=== PATIENT | female | born 1955 | race Caucasian/White ===

== ENCOUNTER → 2018-04-08 | Outpatient (CLI) | payer MEDICAID ==
--- NOTE | 2018-04-08 11:41 | ECHOF ---
Referral Reason:R07.02 Chest Pain, E11.9 type 2 diabetes MEASUREMENTS -------- HEIGHT: 167.6 cm WEIGHT: 81.6 kg BP: IVSd: 1.1 cm (0.6 - 1.1) LVIDd: 5.0 cm (3.9 - 5.3) LVPWd: 1.2 cm (0.6 - 1.1) IVSs: 2.2 cm LVIDs: 1.5 cm LVPWs: 1.7 cm Ao Diam: 3.5 cm (2.0 - 3.7) AV Cusp: 2.4 cm (1.5 - 2.6) LA Diam: 2.9 cm (2.7 - 3.8) MV EXCURSION: 9.024 mm (> 18.000) MV EF SLOPE: 63 mm/s (70 - 150) EPSS: 0.3 cm MV E Jimmy: 0.68 m/s MV DecT: 231 ms MV A Jimmy: 0.93 m/s MV E/A Ratio: 0.74 RAP: 5.00 mmHg RVSP: 26.42 mmHg FINDINGS -------- Sinus rhythm. This was a technically good study. The left ventricular size is normal. There is mild concentric left ventricular hypertrophy. Overa ll left ventricular systolic function is normal with, an EF between 55 - 60 %. The right ventricle is normal in size and function. The left atrium is normal in size. The right atrium is normal in size. The aortic valve is trileaflet, and appears structurally normal. No aortic stenosis or regurgitation. There is trace mitral regurgitation. Trace tricuspid regurgitation present. The right ventricular systolic pressure, as measured by Dopp ler, is 26.42mmHg. Pulmonic valve appears structurally normal. The aortic root size is normal. The pericardium is normal. CONCLUSIONS -------- 1. Sinus rhythm. 2. This was a technically good study. 3. The left ventricular size is normal. 4. There is mild concentric left ventricular hypertrophy. 5. Overall left ventricular systolic function is normal with, an EF between 55 - 60 %. 6. The right ventricle is normal in size and function. 7. The left atrium is normal in size. 8. The right atrium is normal in size. 9. The aortic valve is trileaflet, and appears structurally normal. No aortic stenosis or regurgitati on. 10. There is trace mitral regurgitation. 11. Trace tricuspid regurgitation present. 12. The right ventricular systolic pressure, as measured by Doppler, is 26.42mmHg. 13. Pulmonic valve appears structurally normal. 14. The aortic root size is normal. 15. The pericardium is normal. FINNISH RUBBER: Swati Mcneal RDCS
--- NOTE | 2018-04-08 11:44 | NM ---
EXAMINATION TYPE: NM stress cardiolite complete DATE OF EXAM: 04/08/2018 COMPARISON: NONE HISTORY: Chest pain, diabetes, hypertension, hyperlipidemia and family history of coronary artery dis ease. TECHNIQUE: After the intravenous administration of 10.9 mCi Tc 99m Sestamibi - Rest images obtained 55 minutes post injection. The patient exercised using a KELLY protocol and 1 minute prior to peak exercise was injected with 28.2 mCi Tc 99m Sestamibi - Stress images obtained 10 minutes post injecti on. FINDINGS: Targeted heart rate was achieved during performance of the study. Review of stress and rest SPECT elvin ges demonstrates no distinct perfusion abnormality. Single segmental defect within the ventricular ap ex on the rest images only and is artifactual or may be retail field representative of physiologic apical thinning . Gated analysis shows normal wall motion with an estimated left ventricular ejection fraction of 64 % at stress. TID is calculated within normal limits at 0.98. IMPRESSION: No scintigraphic evidence for reversible ischemia
--- NOTE | 2018-04-08 11:51 | EST ---
EXERCISE STRESS DATE OF SERVICE: 04/08/2018 AGE: 62 SEX: Female HT: 5'6" WT: 180 pounds PROTOCOL: Cardiolite Jules STAGE: II DURATION OF EXERCISE: 5 minutes HEART RATE REST: 65 BLOOD PRESSURE REST: 144/83 MAXIMUM HEART RATE ACHIEVED: 141 MAXIMUM BLOOD PRESSURE: 218/82 85% MPHR: 133 100% MPHR: 156 METS: 7.0 INDICATIONS: Chest pain. CLINICAL INFORMATION: Baseline EKG revealed normal sinus rhythm without significant ST-T changes. There was poor R-wave progression over precordial leads and this could be related to lead placement. Patient walked on a standard Jules protocol for 5 minutes, achieved a maximal heart rate of 141 beats per minute, which is more than 85% of predicted maximal. Resting heart rate was 65 beats per minute. Resting blood pressure was 144/83 and peak blood pressure was 218/82. The patient did not have any chest pain. She developed shortness of breath and fatigue. There was no significant arrhythmia noted. By EKG criteria, this is a negative stress test with limited exercise capacity. The patient had hypertensive response to exercise. The nuclear scan results, which are more pertinent, will be reported by the radiologist. MMODL / IJN: [id number] /
== END | disposition home or self-care (01) ==
LOC: RADNMMAIN 08:38
PROVIDERS: ATTEND Internal Medicine Interventional Cardiology
DX: I51.7 Cardiomegaly (principal); R07.2 Precordial pain; E11.9 Type 2 diabetes mellitus without complications
CPT/HCPCS: 93017; 93306; 78452; A9500

== ENCOUNTER → 2018-10-30 | Outpatient (CLI) | payer MEDICAID ==
--- NOTE | 2018-11-02 12:47 | MM ---
Reason for exam: screening (asymptomatic). Last mammogram was performed 2 years and 2 months ago. History: Patient is postmenopausal. Took hormonal contraceptives for 5 years beginning at age 21. MG 3D Screening Mammo W/Cad Bilateral CC and MLO view(s) were taken. Prior study comparison: August 16, 2016, bilateral MG 3d screening mammo w/cad. August 06, 2011, bilateral digital screening mammo w/CAD. The breast tissue is heterogeneously dense. This may lower the sensitivity of mammography. No discrete abnormality. No significant changes when compared with prior studies. ASSESSMENT: Negative, BI-RAD 1 RECOMMENDATION: Routine screening mammogram of both breasts in 1 year.
== END ==
LOC: RADMAMWWP 14:58
PROVIDERS: ATTEND Family Medicine
DX: Z12.31 Encounter for screening mammogram for malignant neoplasm of breast (principal)
CPT/HCPCS: 77063; 77067

== ENCOUNTER 2019-03-01 20:31 | Emergency (ER) | payer MEDICAID ==
--- NOTE | 2019-03-01 21:33 | XR ---
EXAMINATION TYPE: XR shoulder complete RT DATE OF EXAM: 03/01/2019 COMPARISON: NONE HISTORY: Pain TECHNIQUE: Shoulder examined in 3 views FINDINGS: The humeral head articulates with the glenoid. The acromio-clavicular junction is normal. No acute fractures or dislocations are evident. A follow up study can be performed 7-10 days from acute trauma for continued pain. IMPRESSION: 1. Normal Shoulder
--- NOTE | 2019-03-01 21:34 | XR ---
EXAMINATION TYPE: XR humerus RT DATE OF EXAM: 03/01/2019 COMPARISON: None HISTORY: Fall, pain TECHNIQUE: 2 view right humerus FINDINGS: Humeral head articulates with the glenoid. Elbow joint space appears preserved. No acute fr actures are evident. Soft tissues are unremarkable. IMPRESSION: 1. Normal 2 view right humerus
[2019-03-01 21:37] VITALS: RESP 18
--- NOTE | 2019-03-01 21:53 | ED ---
General Adult HPI - General Source: patient, RN notes reviewed, old records reviewed Mode of arrival: ambulatory Limitations: no limitations <Christoph Arriaza - Last Filed: 03/01/19 22:08> <Fernanda Sloan - Last Filed: 03/02/19 07:43> - General Chief complaint: Fall Stated complaint: Fell/shoulder pain Time Seen by Provider: 03/01/19 20:41 - History of Present Illness Initial comments: 63-year-old female patient presents to ED with right shoulder injury. Patient reports that she walked on her back and slipped falling with her weight on her right shoulder. Patient port suggestive pain in her right shoulder as well as her proximal right humerus. Patient denies any trauma to head or neck. Patient denies any other injuries. Patient denies any use of blood thinners. Systemic: Pt denies fatigue,fever/chills, rash. Pt denies weakness, night sweats, weight loss. Neuro: Pt denies headache, visual disturbances, syncope or pre-syncope. HEENT: Pt denies ocular discharge or irritation, otalgia, rhinorrhea, pharyngitis or notable lymphadenopathy. Cardiopulmonary: Pt denies chest pain, SOB, heart palpitations, dyspnea on exertion. Abdominal/GI: Pt denies abdominal pain, n/v/d. : Pt denies dysuria, burning w/ urination, frequency/urgency. Denies new onset urinary or bowel incontinence. MSK: Pt denies loss of strength or function in extremities. Neuro: Pt denies new onset weakness, paresthesias. (Christoph Arriaza) - Related Data Allergies Allergy/AdvReac Type Severity Reaction Status Date / Time No Known Allergies Allergy Verified 03/01/19 20:39 Review of Systems ROS Other: All systems not noted in ROS Statement are negative. <Christoph Arriaza - Last Filed: 03/01/19 22:08> ROS Other: All systems not noted in ROS Statement are negative. <Fernanda Sloan - Last Filed: 03/02/19 07:43> ROS Statement: Those systems with pertinent positive or pertinent negative responses have been documented in the HPI. Past Medical History Past Medical History: Diabetes Mellitus, GERD/Reflux, Hyperlipidemia, Hypertension, Thyroid Disorder History of Any Multi-Drug Resistant Organisms: None Reported Past Surgical History: Tubal Ligation Past Psychological History: No Psychological Hx Reported Smoking Status: Never smoker Past Alcohol Use History: None Reported Past Drug Use History: None Reported <Christoph Arriaza - Last Filed: 03/01/19 22:08> General Exam Limitations: no limitations <Christoph Arriaza - Last Filed: 03/01/19 22:08> - General Exam Comments Initial Comments: Constitutional: NAD, AOX3, Pt has pleasant affect. HEENT: NC/AT, trachea midline, neck supple, no lymphadenopathy. Posterior pharynx non erythematous, without exudates. External ears appear normal, without discharge. Mucous membranes moist. Eyes PERRLA, EOM intact. There is no scleral icterus. No pallor noted. Cardiopulmonary: RRR, no murmurs, rubs or gallops, no JVD noted. Lungs CTAB in anterior and posterior gambino. No peripheral edema. Abdominal exam: Abdomen soft and non-distended. Abdomen non-tender to palpation in all 4 quadrants. Bowel sounds active in LLQ. No hepatosplenomegaly. No ecchymosis Neuro: CN II-XII grossly intact. No nuchal rigidity. MSK: Proximal humerus mild tenderness to palpation. No ecchymoses. No significant personal patient shoulder. Range of motion slightly limited secondary to pain. Electric Refrigerator Servicer strength intact. Neurovascularly intact. No other areas of tenderness. No posterior calf tenderness bilaterally, homans sign negative bilaterally. Posterior tibialis and radial pulse +2 bilaterally. Sensation intact in upper and lower extremities. Full active ROM in lower extremities, 5/5 stregnth. (Christoph Arriaza) Course Vital Signs 03/01/19 03/01/19 03/01/19 20:36 21:32 22:17 Temperature 98.3 F 98.1 F 97.9 F Pulse Rate 70 61 54 L Respiratory 20 18 18 Rate Blood Pressure 147/95 130/66 124/50 O2 Sat by Pulse 98 96 97 Oximetry Medical Decision Making <Christoph Arriaza - Last Filed: 03/01/19 22:08> <Fenranda Sloan - Last Filed: 03/02/19 07:43> - Medical Decision Making 63-year-old female patient presents to ED with right shoulder injury. Patient reports that she walked on her back and slipped falling with her weight on her right shoulder. Patient port suggestive pain in her right shoulder as well as her proximal right humerus. Patient denies any trauma to head or neck. Patient denies any other injuries. Patient denies any use of blood thinners. Pt VSS, afebrile. Physical exam displayed: Proximal humerus mild tenderness to palpation. No ecchymoses. No significant personal patient shoulder. Range of motion slightly limited secondary to pain. Electric Refrigerator Servicer strength intact. Neurovascularly intact. No other areas of tenderness. Plain film of shoulder and humerus and display acute pathology. Patient likely has mild shoulder sprain. Patient will be discharged with use Tylenol and Motrin as needed for pain. Patient to follow-up with primary care provider as well as orthopedic consult symptoms persist. Case discussed with Dr. Sloan. (Christoph Arriaza) I was available for consultation in the emergency department. The history and physical exam were done by the midlevel provider. I was consulted for this patient's care. I reviewed the case with the midlevel provider and based on their presentation of the patient, I agree with the assessment, medical decision making and plan of care as documented. Chart was dictated using [employer] dictation software. Attempts were made to correct any dictation errors however some typographical errors may persist. (Fernanda Morrison) Disposition Is patient prescribed a controlled substance at d/c from ED?: No <Christoph Arriaza - Last Filed: 03/01/19 22:08> <Fernanda Sloan - Last Filed: 03/02/19 07:43> Clinical Impression: Shoulder sprain Disposition: HOME SELF-CARE Condition: Stable Instructions (If sedation given, give patient instructions): Shoulder Sprain (ED) Additional Instructions: Patient to adhere to previously discussed treatment plan and will take medication(s) as directed. Patient to follow up with PCP in 1-2 days. Patient to return to ED if symptoms do not improve. Follow-up with primary care provider in 1-2 days. Follow up with orthopedic consult if symptoms persist. Use tylenol and Motrin for pain. Referrals: Nayan Odell MD [Primary Care Provider] - 1-2 days Luis Carlos Perdue DO [Medical Doctor] - 1-2 days
[2019-03-01 22:24] VITALS: BP 124/50; PULSE 54; TEMP 97.9
== END 2019-03-01 22:29 | disposition home or self-care (01) ==
LOC: EC 20:31
DX: S43.401A Unspecified sprain of right shoulder joint, initial encounter (principal); W01.0XXA Fall on same level from slipping, tripping and stumbling without subsequent striking against object, initial encounter; Y93.01 Activity, walking, marching and hiking
CPT/HCPCS: 99284

== ENCOUNTER 2019-03-25 07:07 | Day surgery (SDC) | payer MEDICAID ==
[2019-03-23 09:12] VITALS: BMI 29.0
[~2019-03-25 07:07] MED LIST: LACTATED RINGERS 1,000 ML IV SCH; LIDOCAINE 1% 20 ML VIAL (10MG/ML) FOR IV START INTRADERMA PRN
[2019-03-25 07:58] VITALS: TEMP 97.9
[2019-03-25 08:00] LABS: Glucose,Whole Blood 105 mg/dL (75-99)
[2019-03-25] MEDS ORDERED: PROPOFOL 10 MG/ML 20 ML VIAL IV ONE (08:08)
[2019-03-25] MEDS ORDERED: LIDOCAINE 1% INJ 10MG/ML (20 ML MDV) ONE (08:08)
--- NOTE | 2019-03-25 08:20 | P.PCN ---
Date of Procedure: 03/25/19 Procedure(s) Performed: BRIEF HISTORY: Patient is a 63-year-old, pleasant, white female, scheduled for an upper endoscopy as part of evaluation long-standing history of GERD and has been on Protonix 40 mg daily for several years. Lately her symptoms have been progressively getting worse with breakthrough symptoms 4 times a week. She is hence scheduled for an upper endoscopy to rule out complicated reflux disease.. PROCEDURE PERFORMED: Esophagogastroduodenoscopy with biopsy. PREOPERATIVE DIAGNOSIS: Long-standing history of GERD. IV sedation per anesthesia. PROCEDURE: After informed consent was obtained, the patient was brought into the endoscopy unit. IV sedation was administered by Anesthesia under continuous monitoring. Initially the Olympus GIF-140 video endoscope was inserted into the mouth. Esophagus intubated without any difficulty. It was gradually advanced into the stomach and duodenum and carefully examined. The bulb and the second part of the duodenum appeared normal. The scope at this time was withdrawn to the stomach, adequately insufflated with air, and upon careful examination, mucosa of the antrum, had mild gastritis and biopsies were done from this area. The body, cardia and the fundus appeared normal. The scope was then withdrawn into the esophagus. The GE junction was located at 39 cm from the incisors. There was a moderate size hiatal hernia noted. There was an early distal esophageal stricture identified which did not impede the passage of the scope. Also there was circumferential erythema at the GE junction consistent with LA grade a reflux esophagitis. The rest of the esophagus appeared normal. There were no erosions or ulcerations seen and the patient tolerated the procedure well. IMPRESSION: 1. Early distal esophageal stricture with LA grade a reflux esophagitis. 2. Moderate size hiatal hernia 3. Mild antral gastritis. RECOMMENDATIONS: The findings of this examination were discussed with the patient as well as her family. She was advised to continue with Protonix 40 mg daily and follow antireflux measures. She will follow with the biopsy results..
[2019-03-25 08:43] VITALS: BP 152/69; PULSE 51; RESP 16
== END 2019-03-25 09:20 | disposition home or self-care (01) ==
LOC: ORWHC2ENDO 07:07
PROVIDERS: ATTEND Internal Medicine Gastroenterology
DX: K21.0 Gastro-esophageal reflux disease with esophagitis (principal); K22.2 Esophageal obstruction; K44.9 Diaphragmatic hernia without obstruction or gangrene; K29.50 Unspecified chronic gastritis without bleeding; I10 Essential (primary) hypertension; E78.5 Hyperlipidemia, unspecified; E11.9 Type 2 diabetes mellitus without complications; E07.9 Disorder of thyroid, unspecified; Z79.82 Long term (current) use of aspirin; Z79.84 Long term (current) use of oral hypoglycemic drugs; Z79.890 Hormone replacement therapy; Z79.899 Other long term (current) drug therapy
CPT/HCPCS: 43239; 88305; J2001; J2704

== ENCOUNTER → 2019-06-30 | Outpatient (CLI) | payer MEDICAID ==
--- NOTE | 2019-07-01 10:19 | ECHOF ---
Referral Reason:Hypertension I10 MEASUREMENTS -------- HEIGHT: 165.1 cm WEIGHT: 79.4 kg BP: RVIDd: 2.4 cm (< 3.3) IVSd: 1.1 cm (0.6 - 1.1) LVIDd: 4.2 cm (3.9 - 5.3) LVPWd: 1.2 cm (0.6 - 1.1) IVSs: 1.3 cm LVIDs: 3.1 cm LVPWs: 1.5 cm LA Diam: 4.0 cm (2.7 - 3.8) LAESV Index (A-L): 23.49 ml/m Ao Diam: 2.4 cm (2.0 - 3.7) AV Cusp: 1.7 cm (1.5 - 2.6) LA Diam: 3.5 cm (2.7 - 3.8) MV EXCURSION: 10.065 mm (> 18.000) MV EF SLOPE: 52 mm/s (70 - 150) EPSS: 0.5 cm MV E Jimmy: 0.45 m/s MV DecT: 228 ms MV A Jimmy: 0.85 m/s MV E/A Ratio: 0.53 RAP: 5.00 mmHg RVSP: 25.95 mmHg TAPSE: 2.15 cm FINDINGS -------- Sinus rhythm. This was a technically good study. LV size, wall thickness and systolic function are normal, with an EF greater than 55%. The left davey tricular size is normal. The diastolic filling pattern is normal for the age of the patient 8.75. The right ventricle is normal in size. Normal LA size by volume 22+/-6 ml/m2. The right atrial size is normal. The aortic valve is trileaflet, and appears structurally normal. No aortic stenosis or regurgitation. The mitral valve is normal. Mild mitral regurgitation is present. Mild tricuspid regurgitation present. Right ventricular systolic pressure is normal at < 35 mmHg. The right ventricular systolic pressure, as measured by Doppler, is 25.95mmHg. Trace/mild (physiologic) pulmonic regurgitation. The aortic root size is normal. There is no pericardial effusion. CONCLUSIONS -------- 1. Sinus rhythm. 2. This was a technically good study. 3. LV size, wall thickness and systolic function are normal, with an EF greater than 55%. 4. The left ventricular size is normal. 5. The diastolic filling pattern is normal for the age of the patient 8.75 6. Normal LA size by volume 22+/-6 ml/m2. 7. The aortic valve is trileaflet, and appears structurally normal. No aortic stenosis or regurgitati on. 8. The mitral valve is normal. 9. Mild mitral regurgitation is present. 10. Mild tricuspid regurgitation present. 11. Right ventricular systolic pressure is normal at < 35 mmHg. 12. Trace/mild (physiologic) pulmonic regurgitation. 13. The aortic root size is normal. 14. There is no pericardial effusion. SQE: Omayra Dunbar RDCS
== END ==
LOC: RADECHMAIN 15:05
PROVIDERS: ATTEND Internal Medicine Interventional Cardiology
DX: I08.8 Other rheumatic multiple valve diseases (principal); I10 Essential (primary) hypertension
CPT/HCPCS: 93306

== ENCOUNTER → 2020-03-02 | Outpatient (CLI) | payer MEDICAID ==
--- NOTE | 2020-03-03 09:36 | MM ---
Reason for exam: screening (asymptomatic). Last mammogram was performed 1 year and 4 months ago. History: Patient is postmenopausal. Took hormonal contraceptives for 5 years beginning at age 21. Physical Findings: A clinical breast exam by your physician is recommended on an annual basis and results should be correlated with mammographic findings. MG 3D Screening Mammo W/Cad Bilateral CC and MLO view(s) were taken. Prior study comparison: October 30, 2018, bilateral MG 3d screening mammo w/cad. August 16, 2016, bilateral MG 3d screening mammo w/cad. The breast tissue is heterogeneously dense. This may lower the sensitivity of mammography. No suspicious abnormality. No significant changes when compared with prior studies. ASSESSMENT: Negative, BI-RAD 1 RECOMMENDATION: Routine screening mammogram of both breasts in 1 year.
== END | disposition home or self-care (01) ==
LOC: RADMAMWWP 11:21
PROVIDERS: ATTEND Family Medicine
DX: Z12.31 Encounter for screening mammogram for malignant neoplasm of breast (principal)
CPT/HCPCS: 77063; 77067

== ENCOUNTER 2020-11-23 15:44 | Emergency (ER) | payer MEDICAID, OTHER ==
[2020-11-23 15:49] VITALS: RESP 18
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
--- NOTE | 2020-11-23 16:47 | XR ---
EXAMINATION TYPE: XR spine complete AP and Lat DATE OF EXAM: 11/23/2020 COMPARISON: NONE HISTORY: Back pain. Neck pain. TECHNIQUE: 9 views FINDINGS: There is slight lumbar dextroscoliosis. There is degenerative disc space narrowing from L2 to S1 with spur formation. There is no lumbar compression fracture. Thoracic vertebra appear intact. There is normal spacing and alignment. There is no thoracic paraspinal mass. Posterior elements are i ntact. Cervical vertebra show some straightening. There is degenerative hypertrophic spurring anteriorly at C4-5 and C5-6. Posterior elements are intact. Atlantoaxial facet joint is normal. There are no cervic al ribs. IMPRESSION: No fracture seen. Spondylotic changes in the lower cervical spine and lower lumbar spine.
[2020-11-23 17:23] VITALS: BP 155/92; PULSE 67; TEMP 97.6
== END 2020-11-23 17:26 | disposition home or self-care (01) ==
LOC: EC 15:44
DX: M54.2 Cervicalgia (principal); M54.9 Dorsalgia, unspecified; E11.9 Type 2 diabetes mellitus without complications; K21.9 Gastro-esophageal reflux disease without esophagitis; E78.5 Hyperlipidemia, unspecified; I10 Essential (primary) hypertension; E07.9 Disorder of thyroid, unspecified; Z79.82 Long term (current) use of aspirin; Z79.84 Long term (current) use of oral hypoglycemic drugs; Z79.890 Hormone replacement therapy; Z79.899 Other long term (current) drug therapy; Z90.49 Acquired absence of other specified parts of digestive tract
CPT/HCPCS: 72082; 99284

== ENCOUNTER → 2021-03-16 | Outpatient (CLI) | payer MEDICAID ==
--- NOTE | 2021-03-16 12:01 | ECHOF ---
Referral Reason:R07.9 chest pain, E11.9 diabetes MEASUREMENTS -------- HEIGHT: 165.1 cm WEIGHT: 81.6 kg BP: RVIDd: 2.9 cm (< 3.3) IVSd: 1.0 cm (0.6 - 1.1) LVIDd: 4.8 cm (3.9 - 5.3) LVPWd: 0.8 cm (0.6 - 1.1) IVSs: 1.5 cm LVIDs: 3.1 cm LVPWs: 1.2 cm LAESV Index (A-L): 29.52 ml/m Ao Diam: 2.8 cm (2.0 - 3.7) AV Cusp: 1.5 cm (1.5 - 2.6) MV EXCURSION: 15.271 mm (> 18.000) MV EF SLOPE: 74 mm/s (70 - 150) EPSS: 0.2 cm MV E Jimmy: 0.61 m/s MV DecT: 225 ms MV A Jimmy: 0.91 m/s MV E/A Ratio: 0.67 RAP: 5.00 mmHg RVSP: 30.43 mmHg FINDINGS -------- Sinus rhythm. This was a technically good study. LV size, wall thickness and systolic function are normal, with an EF greater than 55%. The left davey tricular size is normal. The right ventricle is normal in size. LA is midly dilated 29-33ml/m2. The right atrial size is normal. The aortic valve is trileaflet, and appears structurally normal. No aortic stenosis or regurgitation. Mild mitral regurgitation is present. Moderate tricuspid regurgitation present. Right ventricular systolic pressure is normal at < 35 mmH g. There is no pulmonic regurgitation present. The aortic root size is normal. There is no pericardial effusion. CONCLUSIONS -------- 1. LV size, wall thickness and systolic function are normal, with an EF greater than 55%. 2. The left ventricular size is normal. 3. The right ventricle is normal in size. 4. LA is midly dilated 29-33ml/m2. 5. The right atrial size is normal. 6. The aortic valve is trileaflet, and appears structurally normal. No aortic stenosis or regurgitati on. 7. Mild mitral regurgitation is present. 8. Moderate tricuspid regurgitation present. 9. The aortic root size is normal. 10. There is no pericardial effusion. ACCOUNTING RECRUITER: Omayra Dunbar RDCS
--- NOTE | 2021-03-16 15:22 | ECHOS ---
STRESS ECHOCARDIOGRAM AGE: 65 SEX: F HT: 5'5" WT: 180 lbs. PROTOCOL: Jules STAGE: II DURATION OF EXERCISE: 5:06 HEART RATE REST: 53 BLOOD PRESSURE REST: 126/74 MAXIMUM HEART RATE ACHIEVED: 53 MAXIMUM BLOOD PRESSURE: 180/74 85% MPHR: 130 100% MPHR: 153 METS: INDICATIONS: Chest pain PROCEDURE: Stress echocardiogram. DATE OF SERVICE: 03/16/2021 STRESS DATA: Heart rate 53, pressure is 126/63 mmHg. Baseline EKG showed sinus mechanism. The patient exercised on the treadmill according to Jules protocol for a total of 5 minutes and achieved 6 of METS. Max heart rate was 143 which is about 93% of maximum predicted heart rate and maximum blood pressure was 180/74 mmHg. Clinically, the patient did not have any symptoms. The EKG showed about 0.[address]-segment changes, most prominent in the inferior leads. ECHOCARDIOGRAM: Echocardiogram images from parasternal long axis view, parasternal short axis view, apical 4 chamber and apical 2 chambers were obtained as the baseline images, at the peak of the heart rate as well as on recovery. The echocardiogram images showed good augmentation in the left ventricular systolic function without any evidence of wall motion abnormalities concerning for ischemia. CONCLUSION: 1. Average exercise tolerance. 2. Good heart rate and blood pressure augmentation in response to exercise. 3. Mild EKG changes in response to exercise. 4. Normal echocardiogram in response to exercise. MMODL / IJN: [id number] /
== END | disposition home or self-care (01) ==
LOC: RADNMMAIN 10:01
PROVIDERS: ATTEND Internal Medicine Interventional Cardiology
DX: I08.1 Rheumatic disorders of both mitral and tricuspid valves (principal); E11.9 Type 2 diabetes mellitus without complications
CPT/HCPCS: 93306; 93351

== ENCOUNTER 2021-07-03 08:51 | Emergency (ER) | payer MEDICAID, OTHER ==
[2021-07-03 09:09] VITALS: RESP 18; TEMP 97.6
[2021-07-03] MEDS ORDERED: MORPHINE SULFATE 4 MG/ML SYRINGE IV STA (09:11)
[2021-07-03] MEDS ORDERED: DIPH,PERTUS(ACELL)TETVAC-LF 0.5 ML VIAL IM ONE (09:13)
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
--- NOTE | 2021-07-03 11:59 | XR ---
EXAMINATION TYPE: XR wrist complete RT DATE OF EXAM: 07/03/2021 COMPARISON: None HISTORY: Breast intermediate TECHNIQUE: 4 view right wrist FINDINGS: Degenerative changes at the first carpal metacarpal junction. No acute fracture or dislocation is evident. Soft tissues the wrist appear normal. Joint spaces are o therwise preserved. Follow up exams can be performed 7-10 days from acute trauma for continued pain. If there is pain at the anatomic snuff box, nuclear medicine bone scan could be performed. IMPRESSION: 1. Normal 4 view right wrist
[2021-07-03] MEDS ORDERED: TOPICAL SKIN ADHESIVE 1 EACH AMP TOPICAL ONE (12:17)
[2021-07-03] MEDS ORDERED: ACET/COD 300 MG/30 MG STARTER PACK 6 TAB BTL PO STA (12:30)
[2021-07-03 12:33] VITALS: BP 120/60; PULSE 63
== END 2021-07-03 12:48 | disposition home or self-care (01) ==
LOC: EC 08:51
DX: S69.91XA Unspecified injury of right wrist, hand and finger(s), initial encounter (principal); S61.214A Laceration without foreign body of right ring finger without damage to nail, initial encounter; M54.2 Cervicalgia; M54.6 Pain in thoracic spine; E11.9 Type 2 diabetes mellitus without complications; E03.9 Hypothyroidism, unspecified; E78.5 Hyperlipidemia, unspecified; I10 Essential (primary) hypertension; Z79.84 Long term (current) use of oral hypoglycemic drugs; Z23 Encounter for immunization; Z79.899 Other long term (current) drug therapy; Z79.890 Hormone replacement therapy; W22.09XA Striking against other stationary object, initial encounter; Y92.89 Other specified places as the place of occurrence of the external cause
CPT/HCPCS: 73110; 73130; 72128; 72125; 70450; 90715; 99284; 12001; 96374; 90471; J2270

== ENCOUNTER → 2022-04-12 | Outpatient (CLI) | payer MEDICAID ==
--- NOTE | 2022-04-13 18:20 | MM ---
Reason for Exam: Screening (asymptomatic). Last mammogram was performed 2 year(s) and 2 month(s) ago. Patient History: Menarche at age 12. First Full-Term at age 27. Postmenopausal. Hormonal Contraceptives for 5 years from age 21 until age 26. Risk Values: Eli 5 year model risk: 1.7%. NCI Lifetime model risk: 5.6%. Prior Study Comparison: 08/16/2016 Bilateral Screening Mammogram, [facility]. 10/30/2018 Bilateral Screening Mammogram, [facility]. 03/02/2020 Bilateral Screening Mammogram, [facility]. Tissue Density: The breast tissue is heterogeneously dense. This may lower the sensitivity of mammography. Findings: Analyzed By CAD. There is no suspicious group of microcalcifications or new suspicious mass in either breast. Overall Assessment: Negative, BI-RAD 1 Management: Screening Mammogram of both breasts in 1 year. 1. Patient should continue monthly self breast exams. 2. A clinical breast exam by your physician is recommended on an annual basis. 3. This exam should not preclude additional follow-up of suspicious palpable abnormalities. Electronically signed and approved by: Lena Nunez M.D. Radiologist
== END | disposition home or self-care (01) ==
LOC: RADMAMWWP 16:09
PROVIDERS: ATTEND Family Medicine
DX: Z12.31 Encounter for screening mammogram for malignant neoplasm of breast (principal)
CPT/HCPCS: 77063; 77067

== ENCOUNTER → 2022-06-26 | Outpatient (CLI) | payer MEDICAID ==
--- NOTE | 2022-06-26 14:31 | US ---
EXAMINATION TYPE: US thyroid st tissue head/neck DATE OF EXAM: 06/26/2022 COMPARISON: NONE CLINICAL HISTORY: E21.3 Hyperparathyroidism. GLAND SIZE: Right Lobe: 3.7 x 1.1 x 1.3 cm Overall Parenchyma: homogenous Left Lobe: 3.9 x 0.6 x 0.7 cm Overall Parenchyma: homogeneous Isthmus Thickness: 0.21 cm NODULES RIGHT: # of nodules measured on right: 1 1. 0.51 X 0.26 x 0.55 cm, upper mid, spongiform, isoechoic nodule, which is taller than wide, with smooth margins, without echogenic foci. TIRADS Score: 0 TIRADS Category 1: Benign Composition: Spongiform (0 points). Recommendation: No FNA LEFT: # of nodules measured on left: 0 ISTHMUS: # of nodules measured in the isthmus: 0 Bilateral neck scanned, no evidence of lymphadenopathy. Inferior to left lobe of thyroid, a hypoechoic vascular mass with internal echogenic foci visualized measuring 1.9 x 1.2 x 0.7 cm. IMPRESSION: 1. Questionable left inferior thyroid mass. Further evaluation with CT with IV contrast of the neck is recommended. 2. Right thyroid nodule which is subcentimeter likely benign given appearance.
== END | disposition home or self-care (01) ==
LOC: RADUSWWP 13:40
PROVIDERS: ATTEND Family Medicine
DX: E21.3 Hyperparathyroidism, unspecified (principal)
CPT/HCPCS: 76536

== ENCOUNTER → 2022-07-25 | Outpatient (CLI) | payer MEDICAID ==
--- NOTE | 2022-07-25 17:32 | CT ---
EXAMINATION TYPE: CT soft tissue neck w con CT DLP: 470.2 mGycm, Automated exposure control for dose reduction was used. DATE OF EXAM: 07/25/2022 5:10 PM COMPARISON: CT brain C-spine 07/03/2021. CLINICAL INDICATION:Female, 66 years old with history of E04.9 nontoxic goiter unspecified, R/O mass on thyroid TECHNIQUE: Standard enhanced CT of the neck. Axial sections with coronal and sagittal reformats were obtained. Contrast used:80cc mL of Isovue 300 with IV Contrast, Oral contrast used: none. FINDINGS: Brain: Visualized portions are grossly unremarkable. Orbits: Unremarkable Sinuses: Grossly unremarkable. Spaces of the neck: Symmetric without organizing fluid collection. Musculoskeletal: No acute osseous pathology. Degenerative disc disease changes of the visualized spin e are present. Lymph nodes: Multiple nonenlarged lymph nodes are seen along both anterior chains of the neck. Vascular structures: Visualized major arteries are patent without evidence of aneurysm. Thoracic Inlet/airway: Airway is patent. The lung apices are clear. Soft tissues/Thyroid: Inferior to the left thyroid gland is an area of soft tissue 18 x 9 x 12 mm whi ch enhances similarly to the adjacent thyroid thin septation the 2 lesions. This is not si gnificantly changed in size from prior noncontrast CT 07/03/2021. Other: none. IMPRESSION Inferior to the left thyroid gland is similarly enhancing compared to the thyroid gland, soft tissue which appears separate from the thyroid gland itself by a thin septation. Findings could relate to ec topic thyroid tissue. This is not significantly changed in size from prior on 07/03/2021.
== END | disposition home or self-care (01) ==
LOC: RADCTMAIN 16:02
PROVIDERS: ATTEND Family Medicine
DX: E04.9 Nontoxic goiter, unspecified (principal)
CPT/HCPCS: 82565; 84520; 70491; 36415; Q9967

== ENCOUNTER → 2023-05-29 | Outpatient (CLI) | payer MEDICAID ==
--- NOTE | 2023-05-30 08:17 | MM ---
Reason for Exam: Screening (asymptomatic). Last mammogram was performed 1 year(s) and 1 month(s) ago. Patient History: Menarche at age 12. First Full-Term at age 27. Postmenopausal. Hormonal Contraceptives for 5 years from age 21 until age 26. Risk Values: Eli 5 year model risk: 1.7%. NCI Lifetime model risk: 5.4%. Prior Study Comparison: 10/30/2018 Bilateral Screening Mammogram, [facility]. 03/02/2020 Bilateral Screening Mammogram, [facility]. 04/12/2022 Bilateral MG 3D screening mammo w/cad, [facility]. Tissue Density: The breast tissue is heterogeneously dense. This may lower the sensitivity of mammography. Findings: Analyzed By CAD. There is no suspicious group of microcalcifications or new suspicious mass in either breast. Stable chronic nodularity within both breasts. Overall Assessment: Benign, BI-RAD 2 Management: Screening Mammogram of both breasts in 1 year. A clinical breast exam by your physician is recommended on an annual basis and results should be correlated with mammographic findings. Note on Eli scores and lifetime risk: 1. A Eli score greater than 3% is considered moderate risk. If this is the case, consider specialist referral to assess eligibility for a risk reducing agent. If overall lifetime risk for the development of breast cancer is 20% or higher, the patient may qualify for future screening with alternating mammogram and breast MRI. Electronically signed and approved by: Cole Oswald D.O.
== END | disposition home or self-care (01) ==
LOC: RADMAMWWP 13:08
PROVIDERS: ATTEND Family Medicine
DX: Z12.31 Encounter for screening mammogram for malignant neoplasm of breast (principal); Z78.0 Asymptomatic menopausal state
CPT/HCPCS: 77063; 77067

== ENCOUNTER → 2023-10-21 | Outpatient (CLI) | payer MEDICAID ==
[2023-10-21 15:54] LABS: African American GFR (CKD) 87 (>60 ml/min/1.73 sqM); Blood Urea Nitrogen 18 mg/dL (7-17); Creatine Kinase 86 U/L (30-135); Non-African American GFR(CKD) 75 (>60 ml/min/1.73 sqM)
--- NOTE | 2023-10-21 17:48 | CT ---
EXAMINATION TYPE: CT angio chest CT DLP: 469.4 mGycm, Automated exposure control for dose reduction was used. DATE OF EXAM: 10/21/2023 4:44 PM COMPARISON: 07/03/2021. CLINICAL INDICATION:Female, 68 years old with history of I71.20 THORACIC AORTIC ANEURYSM, WITHOUT RUP TURE,; abnormal finding on cxr TECHNIQUE/CONTRAST: CTA scan of the thorax is performed without and with IV Contrast, patient injected with 100 mL of Iso heidi 370, MIP images are created and reviewed these are created on a separate workstation.. FINDINGS: Lungs/Pleura: No evidence of focal consolidation, pleural effusion or pneumothorax. Airway: Large airways are patent. Heart: Heart is enlarged for size. Moderate coronary artery calcifications. Vasculature: No evidence for intramural hematoma on noncontrast imaging. No evidence of intimal flap to suggest dissection. No aneurysm identified. Scattered atherosclerotic disease. Mediastinum: No gross evidence of adenopathy. Moderate hiatal hernia. Musculoskeletal: No acute osseous abnormalities Soft Tissues: Unremarkable. Lower neck: No significant findings. Upper Abdomen: The gallbladder is surgically absent. Scattered colonic diverticula. IMPRESSION: 1. No evidence of pulmonary embolism, dissection or aneurysm. 2. Moderate hiatal hernia.
== END | disposition home or self-care (01) ==
LOC: RADCTMAIN 14:58
PROVIDERS: ATTEND Family Medicine
DX: I71.20 Thoracic aortic aneurysm, without rupture, unspecified (principal); K44.9 Diaphragmatic hernia without obstruction or gangrene; I10 Essential (primary) hypertension
CPT/HCPCS: 82565; 82550; 84520; 71275; 36415; Q9967